=== PATIENT | female | born 1965 | race Hispanic/Latino ===

== ENCOUNTER 2023-04-25 15:39 | Inpatient (IN) | payer SELFPAY ==
[2023-04-25] MEDS ORDERED: Ondansetron PF 4 MG/2 ML Vial ONE (16:25)
[2023-04-25 18:00] LABS: #Monocytes 0.7 thou/uL (0.11-0.59); #Neutrophils 10.3 thou/uL (1.40-6.50); %Basophils 0.3 % (0.0-1.0); %Eosinophils 0.1 % (0.0-10.0); %Lymphocytes 7.8 % (21.0-51.0); %Monocytes 5.7 % (0.0-10.0); %Neutrophils 85.7 % (42.0-75.0); Hematocrit 35.4 % (36.0-47.0); Hemoglobin 11.5 g/dL (12.0-16.0); Mean Corpuscular HGB CONC 32.5 g/dL (32.0-36.0); Mean Corpuscular Hemoglobin 26.7 pg (27.0-31.0); Mean Corpuscular Volume 82.3 fl (78.0-98.0); Mean Platelet Volume 9.6 fL (7.4-10.4); Platelet Count 345 10x3/uL (130-400); RBC Distribution Width 14.6 % (11.5-14.5)
[2023-04-25 18:15] LABS: INR-International Normal Ratio 1.1
[2023-04-25 18:26] LABS: ALT (SGPT) 8 U/L (8-55); AST (SGOT) 13 U/L (5-34); Albumin 3.7 g/dL (3.5-5.0); Alkaline Phosphatase 54 U/L (40-110); Anion Gap 12 mmol/L (10-20); BUN (Urea Nitrogen) 17 mg/dL (9.8-20.1); Bilirubin, Total 0.2 mg/dL (0.2-1.2); Calc. Creatinine Clearance 0 mL/min (70-130); Calcium 8.4 mg/dL (7.8-10.44); Carbon Dioxide 24 mmol/L (22-29); Chloride 104 mmol/L (98-107); Estimated GFR 92; Globulin 3.5 g/dL (2.4-3.5); Glucose 104 mg/dL (70-105); Potassium 3.9 mmol/L (3.5-5.1); Protein, Total 7.2 g/dL (6.0-8.3); Sodium 136 mmol/L (136-145)
[2023-04-25 18:27] LABS: Troponin I 0.012 ng/mL (< 0.028)
[2023-04-25 19:01] LABS: Bacteria/HPF None Seen HPF (None Seen); Bilirubin Negative (Negative); Blood, Urine 1+ (Negative); CAUTI Indications for Culture Alt mental st,lethar; Clarity Clear (Clear); Glucose, Urine (Dipstick) Normal (Negative); Ketone, Urine Negative (Negative); Leukocyte Negative Leu/uL (Negative); Mucous/LPF Rare LPF (<2+); Nitrite Negative (Negative); Pregnancy Test - Urine (BHCG) Negative (Negative); Pregu Control Background? CLEAR/WHITE (CLR/WHITE); Pregu Control Bar Appear? YES (CONTROL BAR); Protein, Urine (Dipstick) Negative (Neg-Trace); Specific Gravity 1.009 (1.002-1.036); Specific Gravity, Urine 1.009 (1.002-1.036); Squamous Epithelial None Seen HPF (0-3); Urobilinogen Normal mg/dL (Less than 2); WBC/HPF 0-3 HPF (0-3); pH, Urine 7.5 (5.0-9.0)
[2023-04-25 19:02] LABS: Urine Culture Reflex No No
[2023-04-25] MEDS ORDERED: Ondansetron PF 4 MG/2 ML Vial IVP PRN ×2 (19:15→19:18)
[2023-04-25] MEDS ORDERED: Ondansetron ODT 4 MG TAB SL PRN (19:15)
[2023-04-25] MEDS ORDERED: Acetaminophen 325 MG TAB PO PRN ×2 (19:15→19:18)
[2023-04-25] MEDS ORDERED: Acetaminophen 650 MG Suppository PR PRN (19:18)
[2023-04-25] MEDS ORDERED: Ondansetron ODT 4 MG TAB PO PRN (19:18)
[2023-04-25] MEDS ORDERED: Dexamethasone 10 MG/ML VIAL ONE (19:32)
[2023-04-25] MEDS: Famotidine 20 MG TAB PO SCH (21:38)
[2023-04-25 22:47] VITALS: BMI 24.2
[2023-04-26] MEDS: Dexamethasone 4 mg/ml Vial SLOW IVP SCH ×4 (04:38→20:39)
[2023-04-26 05:05] LABS: #Monocytes 0.1 thou/uL (0.11-0.59); #Neutrophils 8.3 thou/uL (1.40-6.50); %Basophils 0.1 % (0.0-1.0); %Lymphocytes 11.9 % (21.0-51.0); %Monocytes 1.5 % (0.0-10.0); Hematocrit 36.8 % (36.0-47.0); Hemoglobin 11.8 g/dL (12.0-16.0); Mean Corpuscular HGB CONC 32.1 g/dL (32.0-36.0); Mean Corpuscular Hemoglobin 26.6 pg (27.0-31.0); Mean Corpuscular Volume 83.1 fl (78.0-98.0); Mean Platelet Volume 9.8 fL (7.4-10.4); Platelet Count 388 10x3/uL (130-400); RBC Distribution Width 14.8 % (11.5-14.5); Red Blood Cell (RBC) Count 4.43 mill/uL (4.20-5.40); White Blood Cell (WBC) Count 9.6 10x3/uL (4.8-10.8)
[2023-04-26 05:36] LABS: Anion Gap 14 mmol/L (10-20); BUN (Urea Nitrogen) 16 mg/dL (9.8-20.1); Calc. Creatinine Clearance 78 mL/min (70-130); Calcium 9.1 mg/dL (7.8-10.44); Carbon Dioxide 24 mmol/L (22-29); Chloride 105 mmol/L (98-107); Estimated GFR 92; Glucose 132 mg/dL (70-105); Sodium 139 mmol/L (136-145)
[2023-04-26] MEDS: levETIRAcetam 500 MG/5 ML VIAL SLOW IVP SCH ×2 (09:01→20:39)
[2023-04-26] MEDS: Famotidine 20 MG TAB PO SCH ×2 (09:01→20:39)
[2023-04-27] MEDS: Dexamethasone 4 mg/ml Vial SLOW IVP SCH ×2 (04:03→08:29)
[2023-04-27 04:18] LABS: #Monocytes 0.6 thou/uL (0.11-0.59); #Neutrophils 12.7 thou/uL (1.40-6.50); %Basophils 0.1 % (0.0-1.0); %Lymphocytes 10.3 % (21.0-51.0); %Monocytes 3.7 % (0.0-10.0); %Neutrophils 85.3 % (42.0-75.0); Hematocrit 36.8 % (36.0-47.0); Hemoglobin 11.9 g/dL (12.0-16.0); Mean Corpuscular HGB CONC 32.3 g/dL (32.0-36.0); Mean Corpuscular Hemoglobin 26.8 pg (27.0-31.0); Mean Corpuscular Volume 82.9 fl (78.0-98.0); Mean Platelet Volume 10.1 fL (7.4-10.4); Platelet Count 383 10x3/uL (130-400); RBC Distribution Width 14.8 % (11.5-14.5); Red Blood Cell (RBC) Count 4.44 mill/uL (4.20-5.40); White Blood Cell (WBC) Count 14.8 10x3/uL (4.8-10.8)
[2023-04-27 04:46] LABS: Anion Gap 13 mmol/L (10-20); BUN (Urea Nitrogen) 26 mg/dL (9.8-20.1); Calc. Creatinine Clearance 74 mL/min (70-130); Calcium 9.3 mg/dL (7.8-10.44); Carbon Dioxide 24 mmol/L (22-29); Chloride 103 mmol/L (98-107); Estimated GFR 86; Glucose 132 mg/dL (70-105); Potassium 4.3 mmol/L (3.5-5.1); Sodium 136 mmol/L (136-145)
[2023-04-27] MEDS: levETIRAcetam 500 MG/5 ML VIAL SLOW IVP SCH (08:29)
[2023-04-27] MEDS: Famotidine 20 MG TAB PO SCH (08:29)
[2023-04-27 08:33] VITALS: TEMP 97.6
[2023-04-27 08:52] VITALS: BP 104/71
== END 2023-04-27 12:40 | disposition home or self-care (01) | DRG 54 ==
LOC: ERS 15:39 → 2SE 19:09
PROVIDERS: ADMIT Student in an Organized Health Care Education/Training Program; ATTEND Internal Medicine
PROC: 4A10X4Z Monitoring of Central Nervous Electrical Activity, External Approach (ICD-10-PCS; principal; 2023-04-26)
PROC: 4A10X4Z Monitoring of Central Nervous Electrical Activity, External Approach (ICD-10-PCS; 2023-04-26)
DX: D32.9 Benign neoplasm of meninges, unspecified (principal); G93.6 Cerebral edema; G93.89 Other specified disorders of brain; Z88.8 Allergy status to other drugs, medicaments and biological substances; Z98.890 Other specified postprocedural states
CPT/HCPCS: 36415; 70450; 70553; 71045; 80048; 80053; 81001; 81025; 83605; 84484; 85025; 85610; 85730; 93005; 95711; 95819; J1100; J1953; J2405

== ENCOUNTER 2023-06-06 11:44 | Inpatient (IN) | payer OTHER, SELFPAY ==
[2023-06-06] MEDS ORDERED: Ketorolac Tromethamine 30 MG (1 mL) VIAL ONE (13:08)
[2023-06-06 13:15] LABS: #Monocytes 0.4 thou/uL (0.11-0.59); #Neutrophils 10.1 thou/uL (1.40-6.50); %Basophils 0.2 % (0.0-1.0); %Lymphocytes 7.4 % (21.0-51.0); %Monocytes 3.2 % (0.0-10.0); %Neutrophils 87.8 % (42.0-75.0); Hematocrit 47.5 % (36.0-47.0); Hemoglobin 15.8 g/dL (12.0-16.0); Mean Corpuscular HGB CONC 33.3 g/dL (32.0-36.0); Mean Corpuscular Hemoglobin 27.8 pg (27.0-31.0); Mean Corpuscular Volume 83.6 fl (78.0-98.0); Mean Platelet Volume 8.4 fL (7.4-10.4); Platelet Count 301 10x3/uL (130-400); RBC Distribution Width 19.2 % (11.5-14.5); Red Blood Cell (RBC) Count 5.68 mill/uL (4.20-5.40); White Blood Cell (WBC) Count 11.5 10x3/uL (4.8-10.8)
[2023-06-06 13:33] LABS: Bilirubin Negative (Negative); Blood, Urine Large (Negative); Glucose, Urine (Dipstick) Negative (Negative); Ketone, Urine Negative (Negative); Leukocyte Negative (Negative); Nitrite Negative (Negative); Protein, Urine (Dipstick) Negative (Neg-Trace); Urobilinogen 0.2 mg/dL (Less than 2)
[2023-06-06 13:36] LABS: Clarity Clear (Clear); Specific Gravity, Urine 1.026 (1.002-1.036)
[2023-06-06 13:38] LABS: Bacteria/HPF 2+ HPF (None Seen); CAUTI Indications for Culture Pelvic or flank pain; WBC/HPF 0-3 HPF (0-3)
[2023-06-06 13:39] LABS: Urine Culture Reflex No No
[2023-06-06 13:48] LABS: ALT (SGPT) 20 U/L (8-55); AST (SGOT) 13 U/L (5-34); Albumin 3.6 g/dL (3.5-5.0); Alkaline Phosphatase 62 U/L (40-110); Anion Gap 13 mmol/L (10-20); BUN (Urea Nitrogen) 17 mg/dL (9.8-20.1); Bilirubin, Total 0.5 mg/dL (0.2-1.2); Calc. Creatinine Clearance 0 mL/min (70-130); Calcium 8.3 mg/dL (7.8-10.44); Carbon Dioxide 25 mmol/L (22-29); Chloride 99 mmol/L (98-107); Estimated GFR 102; Globulin 3.2 g/dL (2.4-3.5); Glucose 101 mg/dL (70-105); Lipase 11 U/L (8-78); Potassium 3.9 mmol/L (3.5-5.1); Protein, Total 6.8 g/dL (6.0-8.3); Sodium 133 mmol/L (136-145)
[2023-06-06 14:31] LABS: BHCG - Serum Negative (NEGATIVE); Pregs Control Background? CLEAR/WHITE (CLR/WHITE); Pregs Control Bar Appear? YES (CONTROL BAR)
[2023-06-06] MEDS ORDERED: Sodium Chloride 0.9% 100 ML ONE (14:44)
[2023-06-06] MEDS ORDERED: Piperacillin/Tazobactam 3.375 GM VIAL ONE (14:44)
[2023-06-06 19:01] VITALS: BMI 26.2
[2023-06-06] MEDS: Sodium Chloride 0.9% 1,000 ML IV SCH (21:13)
[2023-06-06] MEDS: Acetaminophen 500 MG TAB PO SCH (21:14)
[2023-06-06] MEDS: Famotidine 20 MG TAB PO SCH (21:14)
[2023-06-06] MEDS: Piperacillin/Tazobactam 3.375 GM in Sodium Chloride 0.9% 100 ML IVPB SCH (21:14)
[2023-06-06] MEDS: Ketorolac Tromethamine 30 MG (1 mL) VIAL IVP SCH (21:14)
[2023-06-06] MEDS: levETIRAcetam 500 MG TAB PO SCH (21:15)
[2023-06-06] MEDS: Dexamethasone 1 MG TAB PO SCH (21:17)
[2023-06-07] MEDS: Acetaminophen 500 MG TAB PO SCH ×5 (00:24→23:08)
[2023-06-07] MEDS: Ketorolac Tromethamine 30 MG (1 mL) VIAL IVP SCH ×5 (00:26→23:09)
[2023-06-07] MEDS: Sodium Chloride 0.9% 1,000 ML IV SCH ×2 (01:21→17:36)
[2023-06-07] MEDS: Piperacillin/Tazobactam 3.375 GM in Sodium Chloride 0.9% 100 ML IVPB SCH ×3 (04:50→20:37)
[2023-06-07] MEDS: levETIRAcetam 500 MG TAB PO SCH ×2 (08:31→20:47)
[2023-06-07] MEDS: Dexamethasone 1 MG TAB PO SCH ×3 (08:31→20:46)
[2023-06-07] MEDS: Famotidine 20 MG TAB PO SCH ×2 (08:31→20:46)
[2023-06-07 09:12] LABS: Hematocrit 40.9 % (36.0-47.0); Hemoglobin 13.4 g/dL (12.0-16.0); Manual Diff?? YES; Mean Corpuscular HGB CONC 32.8 g/dL (32.0-36.0); Mean Corpuscular Hemoglobin 27.6 pg (27.0-31.0); Mean Corpuscular Volume 84.2 fl (78.0-98.0); Mean Platelet Volume 8.7 fL (7.4-10.4); Platelet Count 240 10x3/uL (130-400); RBC Distribution Width 18.8 % (11.5-14.5); Red Blood Cell (RBC) Count 4.86 mill/uL (4.20-5.40); White Blood Cell (WBC) Count 7.4 10x3/uL (4.8-10.8)
[2023-06-07 09:35] LABS: Anion Gap 13 mmol/L (10-20); BUN (Urea Nitrogen) 23 mg/dL (9.8-20.1); Calc. Creatinine Clearance 97 mL/min (70-130); Calcium 8.3 mg/dL (7.8-10.44); Carbon Dioxide 22 mmol/L (22-29); Chloride 105 mmol/L (98-107); Estimated GFR 103; Glucose 106 mg/dL (70-105); Magnesium 2.1 mg/dL (1.6-2.6); Phosphorus 4.8 mg/dL (2.3-4.7); Potassium 3.6 mmol/L (3.5-5.1); Sodium 136 mmol/L (136-145)
[2023-06-07 09:36] LABS: INR-International Normal Ratio 1.5; PTT 37.4 sec (22.9-36.1); Prothrombin Time 18.6 sec (12.0-14.7)
[2023-06-07 10:06] LABS: Delete Auto Diff?? YES
[2023-06-07 11:29] LABS: Band 37 % (5-11); Burr Cells SLIGHT = 2-5 cells HPF (0-1); CellaVision Operator ID LAB.NR; Large Platelets 1.9 % (0-5); Lymphocytes 5 % (21-51); Metamyelocyte 3 % (0-0); Monocytes 3 % (0-10); Neutrophil 52 % (42-75); Platelet Adequacy Comment Platelets Decreased; Poikilocytosis SLIGHT = 6-15 cells HPF (0-5); Polychromasia SLIGHT = 2-3 cells HPF (0-2); Reactive Lymphocytes 1 % (0-10); Smudge Cells 0.9 %; Total Cell Count 106
[2023-06-07] MEDS ORDERED: Lactated Ringer's 1,000 ML IV SCH (12:00)
[2023-06-07] MEDS: Lactated Ringer's 1,000 ML IV SCH ×2 (12:45→20:36)
[2023-06-07] MEDS ORDERED: Morphine 2 MG/ML VIAL SLOW IVP PRN (14:16)
[2023-06-07] MEDS: Senokot S 8.6-50 MG TAB PO SCH (20:47)
[2023-06-08] MEDS: Piperacillin/Tazobactam 3.375 GM in Sodium Chloride 0.9% 100 ML IVPB SCH ×3 (04:51→20:05)
[2023-06-08] MEDS: Lactated Ringer's 1,000 ML IV SCH ×3 (04:52→21:24)
[2023-06-08] MEDS: Acetaminophen 500 MG TAB PO SCH ×4 (05:00→23:26)
[2023-06-08] MEDS: Ketorolac Tromethamine 30 MG (1 mL) VIAL IVP SCH ×4 (05:00→23:27)
[2023-06-08 06:42] LABS: Hematocrit 38.3 % (36.0-47.0); Hemoglobin 12.3 g/dL (12.0-16.0); Manual Diff?? YES; Mean Corpuscular HGB CONC 32.1 g/dL (32.0-36.0); Mean Corpuscular Hemoglobin 27.7 pg (27.0-31.0); Mean Corpuscular Volume 86.3 fl (78.0-98.0); Mean Platelet Volume 9.1 fL (7.4-10.4); Platelet Count 155 10x3/uL (130-400); RBC Distribution Width 18.8 % (11.5-14.5); Red Blood Cell (RBC) Count 4.44 mill/uL (4.20-5.40); White Blood Cell (WBC) Count 5.7 10x3/uL (4.8-10.8)
[2023-06-08 06:47] LABS: Delete Auto Diff?? YES
[2023-06-08 07:03] LABS: Anion Gap 11 mmol/L (10-20); BUN (Urea Nitrogen) 30 mg/dL (9.8-20.1); Calc. Creatinine Clearance 95 mL/min (70-130); Calcium 8.5 mg/dL (7.8-10.44); Carbon Dioxide 21 mmol/L (22-29); Chloride 105 mmol/L (98-107); Estimated GFR 102; Glucose 110 mg/dL (70-105); Potassium 3.5 mmol/L (3.5-5.1); Sodium 133 mmol/L (136-145)
[2023-06-08 07:22] LABS: Anisocytosis SLIGHT = 6-15 cells HPF (0-5); Band 21 % (5-11); Burr Cells SLIGHT = 2-5 cells HPF (0-1); CellaVision Operator ID LAB.NR; Lymphocytes 1 % (21-51); Metamyelocyte 1 % (0-0); Monocytes 9 % (0-10); Neutrophil 69 % (42-75); Platelet Adequacy Comment Platelets Decreased; Polychromasia SLIGHT = 2-3 cells HPF (0-2); Schistocytes SLIGHT = 2-5 cells HPF (0-1); Smudge Cells 2.9 %; Total Cell Count 102
[2023-06-08] MEDS: Polyethylene Glycol 3350 17 GM Packet PO SCH (09:00)
[2023-06-08] MEDS: Famotidine 20 MG TAB PO SCH ×2 (09:13→20:05)
[2023-06-08] MEDS: Dexamethasone 1 MG TAB PO SCH ×3 (09:14→20:05)
[2023-06-08] MEDS: levETIRAcetam 500 MG TAB PO SCH ×2 (09:14→20:05)
[2023-06-08] MEDS: Senokot S 8.6-50 MG TAB PO SCH ×2 (09:14→20:05)
[2023-06-08] MEDS ORDERED: Sodium Chloride 0.9% 1,000 ML IV SCH (15:00)
[2023-06-08] MEDS ORDERED: Bacitracin 1 PK TOP PRN (18:19)
[2023-06-09] MEDS: Piperacillin/Tazobactam 3.375 GM in Sodium Chloride 0.9% 100 ML IVPB SCH ×3 (04:00→20:17)
[2023-06-09] MEDS: Ketorolac Tromethamine 30 MG (1 mL) VIAL IVP SCH ×4 (05:15→23:51)
[2023-06-09] MEDS: Acetaminophen 500 MG TAB PO SCH ×4 (05:15→23:43)
[2023-06-09] MEDS: Lactated Ringer's 1,000 ML IV SCH (05:40)
[2023-06-09 06:48] LABS: Hematocrit 39.1 % (36.0-47.0); Hemoglobin 12.7 g/dL (12.0-16.0); Manual Diff?? YES; Mean Corpuscular HGB CONC 32.5 g/dL (32.0-36.0); Mean Corpuscular Hemoglobin 27.1 pg (27.0-31.0); Mean Platelet Volume 10.2 fL (7.4-10.4); Platelet Count 109 10x3/uL (130-400); RBC Distribution Width 19.7 % (11.5-14.5); Red Blood Cell (RBC) Count 4.68 mill/uL (4.20-5.40); White Blood Cell (WBC) Count 6.6 10x3/uL (4.8-10.8)
[2023-06-09 06:49] LABS: Delete Auto Diff?? YES; Mean Corpuscular Volume 83.5 fl (78.0-98.0)
[2023-06-09 07:08] LABS: Anion Gap 15 mmol/L (10-20); BUN (Urea Nitrogen) 31 mg/dL (9.8-20.1); Calc. Creatinine Clearance 100 mL/min (70-130); Calcium 8.4 mg/dL (7.8-10.44); Carbon Dioxide 19 mmol/L (22-29); Chloride 107 mmol/L (98-107); Estimated GFR 103; Glucose 110 mg/dL (70-105); Potassium 3.8 mmol/L (3.5-5.1); Sodium 137 mmol/L (136-145)
[2023-06-09 07:37] LABS: Band 23 % (5-11); CellaVision Operator ID LAB.GE; Large Platelets 2.9 % (0-5); Lymphocytes 6 % (21-51); Metamyelocyte 7 % (0-0); Monocytes 3 % (0-10); Neutrophil 62 % (42-75); Platelet Adequacy Comment Platelets Decreased; Polychromasia SLIGHT = 2-3 cells HPF (0-2); Total Cell Count 105
[2023-06-09] MEDS ORDERED: Enoxaparin 40 MG (0.4 mL) SYRINGE SC SCH (09:00)
[2023-06-09] MEDS ORDERED: FLU VACC QS2023-24(6MOS UP)/PF 60 MCG/0.5 ML SYRINGE IM ONE (09:00)
[2023-06-09] MEDS: Dexamethasone 1 MG TAB PO SCH ×3 (09:50→20:17)
[2023-06-09] MEDS: levETIRAcetam 500 MG TAB PO SCH ×2 (09:50→20:17)
[2023-06-09] MEDS: Famotidine 20 MG TAB PO SCH ×2 (09:50→20:17)
[2023-06-09] MEDS: Senokot S 8.6-50 MG TAB PO SCH ×2 (09:51→20:17)
[2023-06-09] MEDS: Polyethylene Glycol 3350 17 GM Packet PO SCH (09:51)
[2023-06-10 05:01] LABS: Hematocrit 38.5 % (36.0-47.0); Hemoglobin 12.9 g/dL (12.0-16.0); Manual Diff?? YES; Mean Corpuscular HGB CONC 33.5 g/dL (32.0-36.0); Mean Corpuscular Hemoglobin 27.9 pg (27.0-31.0); Mean Corpuscular Volume 83.2 fl (78.0-98.0); Mean Platelet Volume 10.8 fL (7.4-10.4); Platelet Count 47 10x3/uL (130-400); RBC Distribution Width 19.8 % (11.5-14.5); Red Blood Cell (RBC) Count 4.63 mill/uL (4.20-5.40); White Blood Cell (WBC) Count 8.1 10x3/uL (4.8-10.8)
[2023-06-10 05:03] LABS: Delete Auto Diff?? YES
[2023-06-10 05:24] LABS: Anion Gap 11 mmol/L (10-20); BUN (Urea Nitrogen) 42 mg/dL (9.8-20.1); Calc. Creatinine Clearance 101 mL/min (70-130); Calcium 8.2 mg/dL (7.8-10.44); Carbon Dioxide 19 mmol/L (22-29); Chloride 107 mmol/L (98-107); Estimated GFR 104; Glucose 115 mg/dL (70-105); Potassium 4.3 mmol/L (3.5-5.1); Sodium 133 mmol/L (136-145)
[2023-06-10] MEDS: Acetaminophen 500 MG TAB PO SCH ×2 (05:24→13:39)
[2023-06-10] MEDS: Ketorolac Tromethamine 30 MG (1 mL) VIAL IVP SCH ×2 (05:24→13:39)
[2023-06-10 05:30] LABS: Band 34 % (5-11); CellaVision Operator ID LAB.CLH1; Hypochromia SLIGHT = 6-15 cells HPF (0-5); Large Platelets 3.8 % (0-5); Lymphocytes 9 % (21-51); Monocytes 14 % (0-10); Neutrophil 43 % (42-75); Platelet Adequacy Comment Platelets Decreased; Poikilocytosis MODERATE=16-30 cells HPF (0-5); Polychromasia SLIGHT = 2-3 cells HPF (0-2); Total Cell Count 106
[2023-06-10] MEDS ORDERED: Amoxicillin/Potassium Clav 875 MG TAB PO SCH (09:00)
[2023-06-10] MEDS: Famotidine 20 MG TAB PO SCH (09:19)
[2023-06-10] MEDS: Senokot S 8.6-50 MG TAB PO SCH (09:19)
[2023-06-10] MEDS: Dexamethasone 1 MG TAB PO SCH (09:19)
[2023-06-10] MEDS: Polyethylene Glycol 3350 17 GM Packet PO SCH (09:19)
[2023-06-10] MEDS: levETIRAcetam 500 MG TAB PO SCH (09:19)
[2023-06-10] MEDS ORDERED: Sodium Chloride 0.9% 1,000 ML IV SCH (09:30)
[2023-06-10 11:48] VITALS: BP 125/92; TEMP 98
== END 2023-06-10 15:00 | disposition home or self-care (01) | DRG 872 ==
LOC: SUATTDRO 11:44 → ERS 11:44 → SURG A 18:40
PROVIDERS: ADMIT Internal Medicine; ATTEND Internal Medicine
DX: A41.9 Sepsis, unspecified organism (principal); K57.20 Diverticulitis of large intestine with perforation and abscess without bleeding; E87.20 Acidosis, unspecified; D32.9 Benign neoplasm of meninges, unspecified; K21.9 Gastro-esophageal reflux disease without esophagitis; K59.09 Other constipation; D72.829 Elevated white blood cell count, unspecified
CPT/HCPCS: 36415; 74176; 80048; 80053; 81001; 83605; 83690; 83735; 84100; 84703; 85025; 85610; 85730; 86850; 86900; 86901; 87040; 87086; 96361; 96365; 96375; J1650; J1885; J2272; J2543; J3490; J7050; J7120; J8540